=== PATIENT | female | born 1995 | race Caucasian/White ===

== ENCOUNTER 2019-02-15 16:13 | Inpatient (IN) | payer MEDICAID ==
[~2019-02-15] VITALS: Ht 160 cm; Wt 108.2 kg
[2019-02-26] MEDS ORDERED: OXYTOCIN 30U/ 0.9% NaCL 500ML 500 ML IV ONE (21:14)
[2019-02-26] MEDS ORDERED: OXYTOCIN 30U/ 0.9% NaCL 500ML 500 ML IV PRN (21:14)
[2019-02-26 21:30] VITALS: BP 126/80
[2019-02-26] MEDS: LACTATED RINGERS 1,000 ML IV SCH (21:30)
[2019-02-26] MEDS ORDERED: METOCLOPRAMIDE 5 MG/ML, 2ML IVPush PRN (21:30)
[2019-02-26] MEDS ORDERED: TERBUTALINE 1 MG/ML, 1ML IVPush PRN (21:30)
[2019-02-26] MEDS ORDERED: FENTANYL PF 100 MCG/2ML IVPush PRN (21:30)
[2019-02-26] MEDS ORDERED: FENTANYL PF 100 MCG/2ML IV PRN (21:30)
[2019-02-26] MEDS ORDERED: ONDANSETRON 2MG/ML, 2ML IVPush PRN (21:30)
[2019-02-26] MEDS ORDERED: MISOPROSTOL 25 MCG TABLET VG PRN (21:30)
[2019-02-26] MEDS ORDERED: SODIUM CITRATE/CITRIC ACID 30 ML UDC PO PRN (21:30)
[2019-02-26] MEDS ORDERED: SODIUM CITRATE/CITRIC ACID 15 ML UDC PO PRN (21:30)
[2019-02-26] MEDS ORDERED: MISOPROSTOL 25 MCG TABLET ONE (21:41)
[2019-02-26] MEDS ORDERED: OXYTOCIN 30U/ 0.9% NaCL 500ML 500 ML ONE (21:41)
[2019-02-26 21:48] LABS: BASOPHILS # (AUTO) 0.04 x10^3/uL (0-0.1); BASOPHILS % (AUTO) 0 % (0-1); EOSINOPHILS # (AUTO) 0.03 x10^3/uL (0-0.4); EOSINOPHILS % (AUTO) 0 % (1-7); LYMPHOCYTES # (AUTO) 3.19 x10^3/uL (1-3.4); LYMPHOCYTES % (AUTO) 24 % (22-44); MD NO; MEAN CORPUSCULAR HEMOGLOBIN 29.1 pg (27.0-34.8); MEAN CORPUSCULAR HGB CONC 33.6 g/dL (32.4-35.8); MEAN CORPUSCULAR VOLUME 86.5 fL (80-100); MEAN PLATELET VOLUME 9.4 fL (7.4-10.4); MONOCYTES % (AUTO) 6 % (2-9); NEUTROPHILS % (AUTO) 70 % (42-75); PLATELET COUNT 324 x10^3/uL (130-400); RED BLOOD COUNT 4.47 x10^6/uL (3.82-5.3); RED CELL DISTRIBUTION WIDTH 15.5 % (9.6-15.2)
[2019-02-26] MEDS ORDERED: NEWBORN KIT ONE (22:42)
[2019-02-27] MEDS ORDERED: ONDANSETRON 2MG/ML, 2ML ONE (03:09)
[2019-02-27] MEDS ORDERED: FENTANYL PF 100 MCG/2ML ONE (03:17)
[2019-02-27] MEDS: LACTATED RINGERS 1,000 ML IV SCH ×3 (03:23→05:45)
[2019-02-27] MEDS ORDERED: LACTATED RINGERS 1,000 ML IVBOLUS PRN ×2 (04:00→07:00)
[2019-02-27] MEDS ORDERED: FENTANYL/BUPIV./NS/PF 250 ML EPIDCONT SCH ×2 (04:00→06:40)
[2019-02-27] MEDS ORDERED: BUPIVACAINE 0.25% ONE (04:37)
[2019-02-27] MEDS ORDERED: LIDOCAINE/PF 1.5%-EPI 1:200K, 30ML ONE (04:37)
[2019-02-27] MEDS ORDERED: LACTATED RINGERS 1,000 ML IV SCH (06:40)
[2019-02-27] MEDS ORDERED: NALOXONE 0.4 MG/ML, 1ML IVPush PRN (07:00)
[2019-02-27] MEDS ORDERED: DIPHENHYDRAMINE 50 MG/ML, 1ML IVPush PRN (07:00)
[2019-02-27] MEDS ORDERED: ONDANSETRON 2MG/ML, 2ML IVPush PRN (07:00)
[2019-02-27] MEDS ORDERED: EPHEDRINE 50 MG/ML, 1ML IVPush PRN (07:00)
[2019-02-27] MEDS: OXYTOCIN 30U/ 0.9% NaCL 500ML 500 ML IV SCH ×2 (08:15→18:15)
[2019-02-27] MEDS ORDERED: DOCUSATE 100 MG CAPSULE PO PRN (08:30)
[2019-02-27] MEDS ORDERED: OXYcodone/APAP 5/325MG TABLET PO PRN (08:30)
[2019-02-27] MEDS ORDERED: DIPH,PERTUSS(ACELL),TET VAC/PF NC IM-VACC PRN (08:30)
[2019-02-27] MEDS ORDERED: ONDANSETRON 2MG/ML, 2ML IV PRN (08:30)
[2019-02-27] MEDS ORDERED: MEASLES,MUMPS&RUBELLA VACC/PF 0.5 ML SQ PRN (08:30)
[2019-02-27] MEDS ORDERED: CALCIUM CARBONATE 500 MG TAB.CHEW PO PRN (08:30)
[2019-02-27] MEDS ORDERED: MISOPROSTOL 200 MCG TABLET PR PRN (08:30)
[2019-02-27] MEDS ORDERED: RHOGAM FROM BLOOD BANK 1 NOTE EA IM/IV ONE (08:30)
[2019-02-27] MEDS ORDERED: MAGNESIUM HYDROXIDE 8%, 30ML UDC PO PRN (08:30)
[2019-02-27] MEDS ORDERED: ACETAMINOPHEN 325 MG TABLET PO PRN ×2 (08:30)
[2019-02-27] MEDS: PRENATAL VIT/IRON/FA 1 EACH TABLET PO SCH (09:00)
[2019-02-27] MEDS ORDERED: IBUPROFEN 600 MG TABLET ONE (09:31)
[2019-02-27] MEDS ORDERED: OXYcodone/APAP 5/325MG TABLET ONE (09:32)
[2019-02-27] MEDS: IBUPROFEN 600 MG TABLET PO PRN (09:34)
[2019-02-27] MEDS: OXYcodone/APAP 5/325MG TABLET PO PRN ×2 (09:34→09:35)
[2019-02-27 11:30] VITALS: BP 111/68
[2019-02-27 16:15] VITALS: BP 105/67
[2019-02-27 18:17] LABS: BASOPHILS # (AUTO) 0.02 x10^3/uL (0-0.1); BASOPHILS % (AUTO) 0 % (0-1); EOSINOPHILS % (AUTO) 0 % (1-7); LYMPHOCYTES # (AUTO) 2.52 x10^3/uL (1-3.4); LYMPHOCYTES % (AUTO) 15 % (22-44); MD NO; MEAN CORPUSCULAR HEMOGLOBIN 29.8 pg (27.0-34.8); MEAN CORPUSCULAR HGB CONC 33.8 g/dL (32.4-35.8); MEAN CORPUSCULAR VOLUME 88.1 fL (80-100); MEAN PLATELET VOLUME 9.6 fL (7.4-10.4); MONOCYTES # (AUTO) 1.14 x10^3/uL (0.2-0.8); MONOCYTES % (AUTO) 7 % (2-9); NEUTROPHILS # (AUTO) 12.68 x10^3/uL (1.8-6.8); NEUTROPHILS % (AUTO) 78 % (42-75); PLATELET COUNT 292 x10^3/uL (130-400); RED BLOOD COUNT 3.67 x10^6/uL (3.82-5.3); RED CELL DISTRIBUTION WIDTH 15.7 % (9.6-15.2)
[2019-02-27 21:00] VITALS: BP 117/74
[2019-02-28 00:49] VITALS: BP 114/71
[2019-02-28 05:00] VITALS: BP 113/74
[2019-02-28 07:02] VITALS: BP 98/64
[2019-02-28] MEDS: IBUPROFEN 600 MG TABLET PO PRN (07:51)
[2019-02-28] MEDS: PRENATAL VIT/IRON/FA 1 EACH TABLET PO SCH (07:51)
[2019-02-28] MEDS ORDERED: IBUP-1222 PO (09:12)
== END 2019-02-28 14:05 | disposition home or self-care (01) | DRG 807 ==
LOC: LDIP 02-26 21:04 → 2NW 02-27 11:22
PROVIDERS: ADMIT Obstetrics & Gynecology; ATTEND Obstetrics & Gynecology
PROC: 10E0XZZ Delivery of Products of Conception, External Approach (ICD-10-PCS; principal; 2019-02-27)
PROC: 3E033VJ Introduction of Other Hormone into Peripheral Vein, Percutaneous Approach (ICD-10-PCS; 2019-02-27)
PROC: 0HQ9XZZ Repair Perineum Skin, External Approach (ICD-10-PCS; 2019-02-27)
PROC: 3E0R3BZ Introduction of Anesthetic Agent into Spinal Canal, Percutaneous Approach (ICD-10-PCS; 2019-02-27)
PROC: 00HU33Z Insertion of Infusion Device into Spinal Canal, Percutaneous Approach (ICD-10-PCS; 2019-02-27)
DX: O48.0 Post-term pregnancy (principal); Z37.0 Single live birth; O69.81X0 Labor and delivery complicated by cord around neck, without compression, not applicable or unspecified; O77.0 Labor and delivery complicated by meconium in amniotic fluid; O70.0 First degree perineal laceration during delivery; Z3A.41 41 weeks gestation of pregnancy
CPT/HCPCS: 36415; 82803; 85025; 86850; 86900; G0378; J2405; J3010; J3490; J2590; J7120

== ENCOUNTER 2019-02-15 22:12 | Outpatient (CLI) | payer MEDICAID ==
[~2019-02-15] VITALS: Ht 160 cm; Wt 108.0 kg
== END 2019-02-16 00:17 | disposition home or self-care (01) ==
LOC: LDOP 22:12
PROVIDERS: ATTEND Obstetrics & Gynecology
DX: O62.9 Abnormality of forces of labor, unspecified (principal); Z3A.40 40 weeks gestation of pregnancy
CPT/HCPCS: 59025; 99201; G0463